=== PATIENT | female | born 1965 | race Asian ===

== ENCOUNTER 2024-12-06 19:05 | Emergency (ER) | payer MEDICAID ==
[2024-12-06] MEDS: Diphtheria,Pertussis(Acell),Tetanus Vaccine 0.5 ML Syringe IM ONE (19:53)
[2024-12-06] MEDS: Lidocaine 1% 5 ML VIAL INJECT ONE (19:55)
[2024-12-06 20:51] VITALS: BP 154/89; PULSE 77
== END 2024-12-06 20:50 | disposition home or self-care (01) ==
LOC: KA.ED 19:05
DX: S01.511A Laceration without foreign body of lip, initial encounter (principal); E11.40 Type 2 diabetes mellitus with diabetic neuropathy, unspecified; E78.00 Pure hypercholesterolemia, unspecified; I10 Essential (primary) hypertension; Z79.84 Long term (current) use of oral hypoglycemic drugs; Z79.899 Other long term (current) drug therapy; Z23 Encounter for immunization; W01.198A Fall on same level from slipping, tripping and stumbling with subsequent striking against other object, initial encounter; Y93.89 Activity, other specified
CPT/HCPCS: 12013; 70450; 72125; 90471; 90715; 99283; J2003